=== PATIENT | female | born 1945 | race Caucasian/White ===

== ENCOUNTER 2022-11-02 15:52 | Emergency (ER) | payer OTHER ==
--- OUTSIDE RECORDS SUMMARY | 2022-11-02 16:22 | XMS REPORT | Continuity of Care Document ---
:1945 Author Organization [facility] t Address [address] [facility] [address] [place] [address] Care Team Providers Name Role Phone [phone] Primary Care Physician Unavailable SYSTEM, PROVIDER NOT IN Attending Clinician Unavailable Gilson Medina V Attending Clinician Unavailable HATTIE MCINTYRE I Attending Clinician Unavailable JAG MENDOZA Attending Clinician Unavailable BRAULIO HILLS Attending Clinician Unavailable KIERAN BRANNON Attending Clinician Unavailable JACK BARILLAS Attending Clinician Unavailable PEYTON DUNCAN Attending Clinician Unavailable SADIE BECKHAM Attending Clinician Unavailable Gilson Medina V Admitting Clinician Unavailable Payers Payer Name Policy Type Policy Number Effective Date Expiration Date S gianna [facility] MEDICARE [id number] 2020 ADVANTAGE 00:00:00 [employer] CHOICE [id number] 2017 MEDICARE PPO 00:00:00 Problems This patient has no known problems. Allergies, Adverse Reactions, Alerts This patient has no known allergies or adverse reactions. Medications This patient has no known medications. Vital Signs Vital Name Observation Time Observation Value Comments Source WEIGHT 2020-08-04 14:31:14 86.4 kg WEIGHT 2020-03-31 13:29:06 86.6 kg Procedures This patient has no known procedures. Encounters Start End Encounter Admission Attending Care Care Encounter Source Date/Time Date/Time Type Type Clinicians Facility Department ID 2019-11-09 Outpatient LIZET, KERRIE SY [id number] 13:57:36 PROVIDER Maynor o n 2022-04-26 2022-04-26 Outpatient KAYLIN Corcoran [id number] [facility] 12:00:00 12:00:00 Gilson [facility] 2022-03-13 2022-03-13 Outpatient EL ROSS, MDA MDA [id number] 15:14:15 15:14:15 HATTIE zamora 2022-02-15 2022-02-15 Outpatient EL MENDOZA, JAG MDA MDA [id number] 08:25:00 23:59:00 Maynor zamora 2022-02-15 2022-02-15 Outpatient EL AMARIA, MDA MDA [id number] MD 12:18:13 13:50:38 BRAULIO zamora 2022-02-15 2022-02-15 Outpatient EL MENDOZA, JAG MDA MDA [id number] 08:15:00 08:24:00 Maynor zamora 2022-02-15 2022-02-15 Outpatient EL MENDOZA, JAG MDA MDA [id number] 08:00:00 08:14:00 Maynor zamora 2021-08-17 2021-08-17 Outpatient EL AMARIA, MDA MDA [id number] MD 14:52:28 14:52:28 BRAULIO zamora 2021-08-03 2021-08-03 Outpatient EL AMARIA, MDA MDA [id number] 09:14:51 23:59:00 BRAULIO zamora 2021-08-03 2021-08-03 Outpatient EL MDA MDA [id number] 09:14:35 23:59:00 Maynor zamora 2021-07-27 2021-07-27 Outpatient EL CIUREA, KIERAN MDA MDA [id number] 11:44:56 12:43:42 Maynor zamora 2021-07-27 2021-07-27 Outpatient EL ROSS, MDA MDA [id number] 11:45:23 11:45:23 HATTIE zamora 2021-02-02 2021-02-02 Outpatient EL HENNEGAN, MDA MDA [id number] 10:19:52 23:59:00 JACK zamora 2021-02-02 2021-02-02 Outpatient EL AMARIA, MDA MDA [id number] 14:39:39 14:39:39 BRAULIO zamora 2021-02-02 2021-02-02 Outpatient EL ERAN, MDA MDA [id number] 10:15:00 10:18:00 JACK zamora 2020-11-24 2020-11-24 Outpatient EL MIGUELINA, MDA MDA [id number] MD 11:46:03 11:46:03 HATTIE zamora 2020-08-04 2020-08-04 Outpatient EL KELLY, JAG MDA MDA [id number] 10:30:00 23:59:00 Maynor zamora 2020-08-04 2020-08-04 Outpatient EL AMARIA, MDA MDA [id number] 14:08:28 19:18:53 BRAULIO zamora 2020-08-04 2020-08-04 Outpatient EL KELLY, JAG MDA MDA [id number] 10:55:47 10:55:47 Maynor zamora 2020-07-09 2020-07-09 Outpatient EL AMARIA, MDA MDA [id number] 15:23:20 16:28:47 BRAULIO zamora 2020-06-18 2020-06-18 Outpatient EL PERLA, MDA MDA [id number] MD 17:07:07 17:28:01 PEYTON zamora 2020-05-26 2020-05-26 Outpatient EL MIGUELINA, MDA MDA [id number] MD 12:05:17 12:53:51 HATTIE zamora 2020-03-31 2020-04-01 Outpatient EL AMARIA, MDA MDA [id number] MD 13:10:08 08:35:54 BRAULIO zamora 2020-04-01 2020-04-01 Outpatient EL BECKHAM, MDA MDA [id number] MD 00:00:00 00:00:00 SADIE zamora 2020-03-31 2020-03-31 Outpatient EL AMARIA, MDA MDA [id number] MD 09:49:14 23:59:00 BRAULIO zamora 2020-03-31 2020-03-31 Outpatient EL AMARIA, MDA MDA [id number] MD 08:05:00 09:48:00 BRAULIO zamora 2020-03-31 2020-03-31 Outpatient EL AMARIA, MDA MDA [id number] MD 07:45:00 08:04:00 BRAULIO zamora 2019-11-26 2019-11-26 Outpatient EL AMARIA, MDA MDA [id number] 07:45:00 23:59:00 BRAULIO zamora 2019-11-26 2019-11-26 Outpatient EL ROSS, MDA MDA [id number] 11:28:33 16:04:24 HATTIE zamora 2019-11-26 2019-11-26 Outpatient EL AMARIA, MDA MDA [id number] 11:28:17 14:15:52 BRAULIO zamora 2019-11-26 2019-11-26 Outpatient EL AMARIA, MDA MDA [id number] 08:30:59 08:30:59 BRAULIO zamora 2019-11-18 2019-11-18 Outpatient EL AMARIA, MDA MDA [id number] 00:00:00 00:00:00 BRAULIO zamora 2019-11-18 2019-11-18 Outpatient EL AMARIA, MDA MDA [id number] 00:00:00 00:00:00 BRAULIO zamora Results This patient has no known results.
[2022-11-02 17:56] LABS: Absolute Lymphocytes (CBC) 1.7 K/uL (0.7-4.9); Hematocrit 45.9 % (36.0-45.0); Lymphocytes % 15.2 % (15.3-44.8); MCV 96.2 fL (80-100); MPV 7.9 fL (7.6-11.3); RBC Red Blood Cell Count 4.78 M/uL (3.86-4.86)
[2022-11-02 18:20] LABS: Albumin 3.7 g/dL (3.4-5.0); Bilirubin Total 0.7 mg/dL (0.2-1.0); Protein, Total 9.2 g/dL (6.4-8.2)
[2022-11-02 18:26] LABS: Potassium 4.1 mEq/L (3.5-5.1)
--- NOTE | 2022-11-02 19:24 | RAD REPORT ---
EXAM DESCRIPTION: CT - Chest For Pe Angio - 11/02/2022 7:13 pm CLINICAL HISTORY: Chest pain. SOB COMPARISON: Chest Angio dated 03/20/2017 TECHNIQUE: CT angiogram of the pulmonary arteries was performed with MIP. All CT scans are performed using dose optimization technique as appropriate and may include automated exposure control or mA/KV adjustment according to patient size. FINDINGS: No evidence of pulmonary thromboembolism. No acute aortic finding demonstrated. There is a vague 1 cm ground-glass nodularity superior segment right lower lobe (image 111/140). Cont inued monitoring of this would be recommended with follow-up CT 6 months. No focal infiltrate seen. No significant pericardial or pleural fluid. No concerning bony finding. IMPRESSION: No evidence of pulmonary thromboembolism. Vague ground-glass nodularity superior segment right lower lobe. This is nonspecific. Followup survei llance CT chest in 6 months.
--- NOTE | 2022-11-02 19:35 | ER ---
Nurse's Notes [facility] Name: Myranda Song Age: 77 yrs Sex: Female : 1945 Arrival Date: 11/02/2022 Time: 15:[address] Private MD: Diagnosis: Solitary pulmonary nodule Presentation: 11/02 16:32 Chief complaint: Patient states: that she was sent here by her PCP to have a CT scan to [facility] r/o PE or pneumonia. Pt states that she had an x-ray and labs done yesterday. Pt states that her O2 level at her pcp was 90%. O2 sat in triage 98%, respirations even and unlabored, speaking in complete sentences. Pt has no complaints at this time. Coronavirus screen: Vaccine status: Patient reports receiving the 2nd dose of the covid vaccine. Ebola Screen: Patient denies travel to an Ebola-affected area in the 21 days before illness onset. No symptoms or risks identified at this time. Initial Sepsis Screen: Does the patient meet any 2 criteria? No. Patient's initial sepsis screen is negative. Does the patient have a suspected source of infection? No. Patient's initial sepsis screen is negative. Risk Assessment: Do you want to hurt yourself or someone else? Patient reports no desire to harm self or others. Onset of symptoms was November 02, 2022. 16:32 Method Of Arrival: Ambulatory 10 16:32 Acuity: NEIL 3 cm10 Triage Assessment: 16:38 General: Appears in no apparent distress. comfortable, Behavior is calm, cooperative. cm10 Pain: Denies pain. Neuro: No deficits noted. Level of Consciousness is awake, alert, Oriented to person, place, time, situation. Respiratory: No deficits noted. Airway is patent Respiratory effort is even, unlabored, Respiratory pattern is regular, symmetrical. Historical: - Allergies: 16:36 No Known Allergies; cm10 - PMHx: 16:36 Diabetes mellitus; Hypertensive disorder; high cholesterol; cancer- malignant melanoma; cm10 - Immunization history:: Adult Immunizations. - Social history:: Smoking status: Patient denies any tobacco usage or history of. Screenin:48 [facility] ED Fall Risk Assessment (Adult) History of falling in the last 3 months, kc6 including since admission No falls in past 3 months (0 pts) Confusion or Disorientation No (0 pts) Intoxicated or Sedated No (0 pts) Impaired Gait No (0 pts) Mobility Assist Device Used No (0 pt) Altered Elimination No (0 pt) Score/Fall Risk Level 0 - 2 = Low Risk Oriented to surroundings, Maintained a safe environment, Educated pt \T\ family on fall prevention, incl call for assistance when getting out of bed, Assessed \T\ reinforced patient's understanding of fall precautions, Hourly rounding (assess needs \T\ fall precautionary measures) done. Abuse screen: Denies threats or abuse. Denies injuries from another. Nutritional screening: No deficits noted. Tuberculosis screening: No symptoms or risk factors identified. Assessment: 17:51 General: Appears in no apparent distress. comfortable, Behavior is calm, cooperative, kc6 appropriate for age. Pain: Denies pain. Neuro: Diamond Agitation-Sedation Scale (RASS): 0 - Alert and Calm Level of Consciousness is awake, alert, obeys commands, Oriented to person, place, time, situation, Appropriate for age. Cardiovascular: Capillary refill < 3 seconds. Respiratory: Airway is patent Trachea midline Respiratory effort is even, unlabored, Respiratory pattern is regular, symmetrical. GI: No signs and/or symptoms were reported involving the gastrointestinal system. : No signs and/or symptoms were reported regarding the genitourinary system. EENT: No signs and/or symptoms were reported regarding the EENT system. Derm: No signs and/or symptoms reported regarding the dermatologic system. Skin is intact, Skin is pink, warm \T\ dry. Musculoskeletal: No signs and/or symptoms reported regarding the musculoskeletal system. Circulation, motion, and sensation intact. Capillary refill < 3 seconds, Range of motion: intact in all extremities. 18:54 Reassessment: Patient appears in no apparent distress at this time. No changes from kc6 previously documented assessment. Patient and/or family updated on plan of care and expected duration. Pain level reassessed. Patient is alert, oriented x 3, equal unlabored respirations, skin warm/dry/pink. 19:00 Reassessment: Patient appears in no apparent distress at this time. Patient and/or jb4 family updated on plan of care and expected duration. Pain level reassessed. Patient is alert, oriented x 3, equal unlabored respirations, skin warm/dry/pink. 20:05 Reassessment: Patient appears in no apparent distress at this time. Patient and/or jb4 family updated on plan of care and expected duration. Pain level reassessed. Patient is alert, oriented x 3, equal unlabored respirations, skin warm/dry/pink. Vital Signs: 16:32 BP 138 / 79; Pulse 90; Resp 18; Temp 98.2(TE); Pulse Ox 98% on R/A; Weight 78.47 kg; cm10 Height 5 ft. 5 in. ; Pain 0/10; 17:49 BP 151 / 77; Pulse 82; Resp 18 S; Pulse Ox 93% on R/A; kc6 18:55 BP 137 / 78; Pulse 81; Resp 17 S; Pulse Ox 98% on R/A; kc6 19:45 BP 149 / 89; Pulse 79; Resp 18; Pulse Ox 92% on R/A; jb4 16:32 Body Mass Index 28.79 (78.47 kg, 165.1 cm) cm10 16:32 Pain Scale: Adult cm10 ED Course: 15:54 Patient arrived in ED. am2 16:36 Triage completed. cm10 16:38 Finn Ward PA is PHCP. jmm 16:39 Rogers Riddle MD is Attending Physician. jmm 16:39 Arm band placed on Patient placed in waiting room. cm10 17:32 Bernie Radford RN is Primary Nurse. kc6 17:48 Patient has correct armband on for positive identification. Placed in gown. Bed in low kc6 position. Call light in reach. Side rails up X 1. 17:48 Inserted saline lock: 20 gauge in left forearm, using aseptic technique. ,using aseptic kc6 technique. placed by CRISTHIAN Duarte Blood collected. 19:15 CT Chest For PE Angio In Process Unspecified. EDMS 20:05 No provider procedures requiring assistance completed. IV discontinued, intact, jb4 bleeding controlled, No redness/swelling at site. Pressure dressing applied. Administered Medications: No medications were administered Outcome: 19:34 Discharge ordered by . jm 20:05 Discharged to home ambulatory, with family. jb4 20:05 Condition: stable 20:05 Discharge instructions given to patient, Instructed on discharge instructions, follow up and referral plans. medication usage, Demonstrated understanding of instructions, follow-up care, medications, Prescriptions given X 1. 20:06 Patient left the ED. jb4 Signatures: Dispatcher [employer] EDMS Finn Ward PA PA jmm Bryson, James RN RN jb4 Jannet Le am2 Bernie Radford RN RN kc6 Felicia Marsh RN RN cm10 Corrections: (The following items were deleted from the chart) 16:38 16:32 BP 138 / 79; Pulse 90bpm; Resp 98bpm; Pulse Ox 98% RA; Temp 98.2F Temporal; 78.47 cm10 kg; Height 5 ft. 5 in.; BMI: 28.7; Pain 0/10, Adult; cm10
--- NOTE | 2022-11-02 19:35 | EDPHYS ---
Physician Documentation [facility] Name: Myranda Song Age: 77 yrs Sex: Female : 1945 Arrival Date: 11/02/2022 Time: 15:[address] Private MD: ED Physician Rogers Riddle HPI: 11/02 16:44 This 77 yrs old Female presents to ER via Ambulatory with complaints of Abnormal Lab jmm Results. 16:44 The patient has shortness of breath at rest. Onset: The symptoms/episode began/occurred jmm gradually. The patient's shortness of breath is aggravated by nothing, is alleviated by nothing. Patient states she has felt fatigue and general weakness. Went to visit Dr. Medina. Labs drawn. Advised to go to ED due to abnormal imaging. . Historical: - Allergies: 16:36 No Known Allergies; cm10 - PMHx: 16:36 Diabetes mellitus; Hypertensive disorder; high cholesterol; cancer- malignant melanoma; cm10 - Immunization history:: Adult Immunizations. - Social history:: Smoking status: Patient denies any tobacco usage or history of. ROS: 16:44 Constitutional: Negative for fever, chills, and weight loss, Cardiovascular: Negative jmm for chest pain, palpitations, and edema. 16:44 Respiratory: Positive for shortness of breath. 16:44 Neuro: Positive for weakness. 16:44 All other systems are negative. Exam: 16:44 Constitutional: This is a well developed, well nourished patient who is awake, alert, jmm and in no acute distress. Head/Face: atraumatic. Eyes: EOMI, no conjunctival erythema appreciated ENT: Moist Mucus Membranes Neck: Trachea midline, Supple Chest/axilla: Normal chest wall appearance and motion. Cardiovascular: Regular rate and rhythm. No edema appreciated Respiratory: Normal respirations, no respiratory distress appreciated Abdomen/GI: Non distended Back: Normal ROM Skin: General appearance color normal MS/ Extremity: Moves all extremities, no obvious deformities appreciated, no edema noted to the lower extremities Neuro: Awake and alert Psych: Behavior is normal, Mood is normal, Patient is cooperative and pleasant Vital Signs: 16:32 BP 138 / 79; Pulse 90; Resp 18; Temp 98.2(TE); Pulse Ox 98% on R/A; Weight 78.47 kg; cm10 Height 5 ft. 5 in. ; Pain 0/10; 17:49 BP 151 / 77; Pulse 82; Resp 18 S; Pulse Ox 93% on R/A; kc6 18:55 BP 137 / 78; Pulse 81; Resp 17 S; Pulse Ox 98% on R/A; kc6 19:45 BP 149 / 89; Pulse 79; Resp 18; Pulse Ox 92% on R/A; jb4 16:32 Body Mass Index 28.79 (78.47 kg, 165.1 cm) cm10 16:32 Pain Scale: Adult cm10 MDM: 16:44 Patient medically screened. [facility] 19:30 Differential diagnosis: pneumonia, Pulmonary Embolism. [facility] 20:51 Data reviewed: vital signs, nurses notes, lab test result(s), radiologic studies, CT [facility] scan. Consideration of Admission/Observation Escalation of care including admission/observation considered. Counseling: I had a detailed discussion with the patient and/or guardian regarding: the historical points, exam findings, and any diagnostic results supporting the discharge/admit diagnosis, lab results, radiology results, the need for outpatient follow up, to return to the emergency department if symptoms worsen or persist or if there are any questions or concerns that arise at home. 11/02 16:45 Order name: CBC with Diff; Complete Time: 18:09 [facility] 11/02 16:45 Order name: CMP; Complete Time: 18:29 [facility] 11/02 16:45 Order name: Lipase; Complete Time: 18:29 [facility] 11/02 16:45 Order name: Lactate w/ 2H reflex if indic.; Complete Time: 18:33 [facility] 11/02 16:45 Order name: Blood Culture Adult (2) [facility] 11/02 16:45 Order name: CT Chest For PE Angio; Complete Time: 19:26 [facility] 11/02 16:45 Order name: IV Saline Lock; Complete Time: 17:48 [facility] 11/02 16:45 Order name: Labs collected and sent; Complete Time: 17:48 [facility] Administered Medications: No medications were administered Disposition: 21:17 Co-signature as Attending Physician, Rogers Riddle MD I reviewed the patient's care rt provided by the Advanced Practice Provider and agree with the diagnosis and treatment plan. Disposition Summary: 11/02/22 19:34 Discharge Ordered Location: Home [facility] Condition: Stable [facility] Diagnosis - Solitary pulmonary nodule [facility] Followup: [facility] - With: Private Physician - When: 2 - 3 days - Reason: Recheck today's complaints, Continuance of care, Re-evaluation by your physician Discharge Instructions: - Discharge Summary Sheet sharmin - Pulmonary Nodule sharmin Forms: - Medication Reconciliation Form sharmin - Thank You Letter chelsea - Antibiotic Education chelsea - Prescription Opioid Use sharmin Prescriptions: - cefdinir 300 mg Oral capsule - take 1 capsule by ORAL route 2 times per day for 10 days; 20 capsule; Refills: chelsea 0, Product Selection Permitted Signatures: Dispatcher [employer] EDMS Finn Ward PA PA jmm Turkington, Ryan, MD MD rt Felicia Marsh RN RN cm10 Corrections: (The following items were deleted from the chart) 20:51 16:44 The patient's shortness of breath is aggravated by nothing, is alleviated by jmm nothing, chelsea
[2022-11-02 20:28] VITALS: TEMP 98.2
[2022-11-02 20:34] VITALS: BP 149/89; O2SAT 92
== END 2022-11-02 20:06 | disposition home or self-care (01) ==
LOC: ER 15:52
DX: R91.1 Solitary pulmonary nodule (principal); R53.1 Weakness; R53.83 Other fatigue; I10 Essential (primary) hypertension; E11.9 Type 2 diabetes mellitus without complications; Z85.820 Personal history of malignant melanoma of skin
CPT/HCPCS: 87040; 85025; 36415; 83605; 83690; 80053; 71275; 99284; Q9967

== ENCOUNTER 2024-05-16 15:51 | Emergency (ER) | payer OTHER ==
[2024-05-16] MEDS ORDERED: MORPHINE 2 MG/ML SYR ONE (16:10)
--- NOTE | 2024-05-16 16:51 | RAD REPORT ---
EXAMINATION: XR LEFT SHOULDER CLINICAL INDICATION: Female, 78 years old. Swelling;Pain TECHNIQUE: Multiple views of the left shoulder were obtained. COMPARISON: No prior exam. FINDINGS: Mildly impacted surgical neck fracture proximal left humerus. Prominent greater tuberosity component noted. No dislocation seen.
--- NOTE | 2024-05-16 17:40 | EDPHYS ---
Physician Documentation [facility] Name: Myranda Song Age: 78 yrs Sex: Female : 1945 Arrival Date: 05/16/2024 Time: 15:51 Bed 12 Private MD: ED Physician Manan Brenner HPI: 05/16 16:48 This 78 yrs old Female presents to ER via EMS with complaints of Arm Injury. dr5 16:48 The patient or guardian complains of injury, swelling, tenderness. The complaints dr5 affect the anterior aspect of left shoulder. Context: The problem was sustained at home, resulted from a fall, the patient slipped. Onset: The symptoms/episode began/occurred acutely. Patient is a 78-year-old female with history of diabetes, hyperlipidemia, hypertension, remission from malignant melanoma coming in for a mechanical fall while in her kitchen. Patient reports she was walking and slipped on hard tile landing on her left shoulder. Patient was brought in by EMS and patient took 2 extra strength Tylenol prior to arrival.. Historical: - Allergies: 16:00 No Known Allergies; iw - PMHx: 15:59 cancer- malignant melanoma; diabetes mellitus; High Cholesterol; Hypertensive disorder; iw - Immunization history:: Adult Immunizations. - Infectious Disease History:: Denies. - Social history:: Smoking status: unknown. ROS: 16:48 Constitutional: as per hpi dr5 Exam: 16:48 Constitutional: This is a well developed, well nourished patient who is awake, alert, dr5 and in no acute distress. Head/Face: Normocephalic, atraumatic. Eyes: Pupils equal round and reactive to light, extra-ocular motions intact. Lids and lashes normal. Conjunctiva and sclera are non-icteric and not injected. Cornea within normal limits. Periorbital areas with no swelling, redness, or edema. ENT: Nares patent. No nasal discharge, no septal abnormalities noted. Tympanic membranes are normal and external auditory canals are clear. Oropharynx with no redness, swelling, or masses, exudates, or evidence of obstruction, uvula midline. Mucous membranes moist. Neck: Trachea midline, no thyromegaly or masses palpated, and no cervical lymphadenopathy. Supple, full range of motion without nuchal rigidity, or vertebral point tenderness. No Meningismus. Chest/axilla: Normal chest wall appearance and motion. Nontender with no deformity. No lesions are appreciated. Cardiovascular: Regular rate and rhythm with a normal S1 and S2. Normal PMI, no JVD. No pulse deficits. Respiratory: Lungs have equal breath sounds bilaterally, clear to auscultation. No rales, rhonchi or wheezes noted. No increased work of breathing, no retractions or nasal flaring. Back: No spinal tenderness. No costovertebral tenderness. Full range of motion. Skin: Warm, dry with normal turgor. Normal color with no rashes, no lesions, and no evidence of cellulitis. 16:48 Neuro: Awake and alert, GCS 15, oriented to person, place, time, and situation. Cranial nerves II-XII grossly intact. Motor strength 5/5 in all extremities. Sensory grossly intact. Cerebellar exam normal. Normal gait. 16:48 Musculoskeletal/extremity: Extremities: noted in the anterior aspect of left shoulder: pain, swelling, tenderness, ROM: limited active range of motion, in the left arm, Circulation is intact in all extremities. Sensation intact. Vital Signs: 16:00 BP 158 / 78; Pulse 74; Resp 18; Temp 98.1; Pulse Ox 97% on R/A; Pain 3/10; iw 16:00 Pain Scale: Adult iw Procedures: 17:55 Splinting: Splint applied to left bicep using Shoulder immobilizer. applied by tech. destiny post reduction film - Examined by me, post splint application: neurovascular intact, 2+ distal pulses palpable, brisk capillary refill noted, Patient tolerated well. MDM: 15:57 Medical Screening Exam initiated dr5 17:55 Differential diagnosis: dislocation, open fracture, closed fracture, contusion, dr5 abrasion. Data reviewed: vital signs, nurses notes. I considered the following discharge prescriptions or medication management in the emergency department Medications were administered in the Emergency Department. See MAR. Care significantly affected by the following chronic conditions: diabetes, hyperlipidemia, hypertension. Care significantly affected by the following Social Determinants of Health: Poor access to healthcare and/or lack of insurance, Poor access to transportation, Problems related to employment. Counseling: I had a detailed discussion with the patient and/or guardian regarding the historical points, exam findings, and any diagnostic results supporting the discharge/admit diagnosis, the presence of at least one elevated blood pressure reading (>120/80) during this emergency department visit, the need for outpatient follow up, for definitive care, a family practitioner, a orthopedic surgeon, to return to the emergency department if symptoms worsen or persist or if there are any questions or concerns that arise at home. 17:55 Medication response: morphine markedly relieved the patient's pain. Symptoms have dr5 improved. Response to treatment: the patient's symptoms have markedly improved after treatment. ED course: Patient placed in shoulder immobilizer. Sent Tylenol with codeine to take as needed for breakthrough pain. Recommended alternating Tylenol Motrin as needed for pain. Discussed with family and will take her to orthopedic in [place] for follow-up. All questions answered. X-ray report printed and put in discharge paperwork. 05/16 15:54 Order name: Shoulder Left (2 View) XRAY; Complete Time: 17:11 dr5 05/16 17:29 Order name: Shoulder Immobilizer; Complete Time: 17:52 dr5 Administered Medications: 16:23 Drug: morphine IM 2 mg IM once Route: IM; Site: left deltoid; iw 16:50 Follow up: Response: No adverse reaction; Pain is decreased iw Disposition Summary: 05/16/24 17:39 Discharge Ordered Notes: Location: Home dr5 Condition: Stable dr5 Diagnosis - Fracture of upper end of humerus dr5 Followup: dr5 - With: Emergency Department - When: As needed - Reason: Worsening of condition Followup: dr5 - With: Private Physician - When: 1 - 2 days - Reason: Recheck today's complaints, Continuance of care, Re-evaluation by your physician Discharge Instructions: - Discharge Summary Sheet dr5 - Humerus Fracture Treated With Immobilization dr5 Forms: - Medication Reconciliation Form dr5 - Prescription Opioid Use dr5 - Patient Portal Instructions dr5 - Leadership Thank You Letter dr5 Prescriptions: - acetaminophen-codeine 300-15 mg Oral tablet - take 1 tablet ORAL route every 6 hours As needed as needed for pain; 20 tablet; dr5 Refills: 0, Product Selection Permitted Addendum: 05/18/2024 07:39 I was immediately available for consultation during this patient's visit. I did not e c2 personally see the patient or discuss the patient with the [place]. . Signatures: Dispatcher [employer] Yolanda Soares RN RN iw Manan Brenner MD MD ec2 Hasmukh Salas, CONDUIT BENDER-C CONDUIT BENDER-Cdr5
--- NOTE | 2024-05-16 17:40 | ER ---
Nurse's Notes [facility] Name: Myranda Song Age: 78 yrs Sex: Female : 1945 Arrival Date: 05/16/2024 Time: 15:51 Bed 12 Private MD: Diagnosis: Fracture of upper end of humerus Presentation: 05/16 15:58 Chief complaint: Patient states: tripped and fell , landed on left arm, hit head, no iw LOC. Coronavirus screen: At this time, the client does not indicate any symptoms associated with coronavirus-19. Ebola Screen: No symptoms or risks identified at this time. Initial Sepsis Screen: Does the patient meet any 2 criteria? No. Patient's initial sepsis screen is negative. Does the patient have a suspected source of infection? No. Patient's initial sepsis screen is negative. Risk Assessment: Do you want to hurt yourself or someone else? Patient reports no desire to harm self or others. Onset of symptoms was May 16, 2024. 15:58 Method Of Arrival: EMS: [facility] iw 15:58 Acuity: NEIL 4 iw Historical: - Allergies: 16:00 No Known Allergies; iw - PMHx: 15:59 cancer- malignant melanoma; diabetes mellitus; High Cholesterol; Hypertensive disorder; iw - Immunization history:: Adult Immunizations. - Infectious Disease History:: Denies. - Social history:: Smoking status: unknown. Screenin:27 [facility] ED Fall Risk Assessment (Adult) History of falling in the last 3 months, iw including since admission Yes- single mechanical fall (1 pt) Confusion or Disorientation No (0 pts) Intoxicated or Sedated No (0 pts) Impaired Gait No (0 pts) Mobility Assist Device Used No (0 pt) Altered Elimination No (0 pt) Score/Fall Risk Level 0 - 2 = Low Risk Oriented to surroundings. Abuse screen: Denies threats or abuse. Nutritional screening: No deficits noted. Tuberculosis screening: No symptoms or risk factors identified. Assessment: 16:26 General: Appears in no apparent distress. Behavior is calm, cooperative. Pain: iw Complains of pain in anterior aspect of left shoulder and posterior aspect of left shoulder Pain currently is 6 out of 10 on a pain scale. Neuro: Level of Consciousness is awake, alert, obeys commands, Oriented to person, place, time, situation, Moves all extremities. Full function. Cardiovascular: Patient's skin is warm and dry. Respiratory: Respiratory effort is even, unlabored, Respiratory pattern is regular. Derm: Skin is intact, is healthy with good turgor. Musculoskeletal: Range of motion: intact in all extremities. Vital Signs: 16:00 BP 158 / 78; Pulse 74; Resp 18; Temp 98.1; Pulse Ox 97% on R/A; Pain 3/10; iw 16:00 Pain Scale: Adult iw ED Course: 15:53 Patient arrived in ED. eb 15:53 Hasmukh Salas FNP-C is [facility]. dr5 15:53 Manan Brenner MD is Attending Physician. dr5 15:57 Yolanda Careron, RN is Primary Nurse. iw 15:59 Triage completed. iw 15:59 Arm band placed on. iw 16:27 Patient has correct armband on for positive identification. Provided Education on: . iw 16:28 Patient did not have IV access during this emergency room visit. iw 16:44 Shoulder Left (2 View) XRAY In Process Unspecified. EDMS 18:18 No provider procedures requiring assistance completed. iw Administered Medications: 16:23 Drug: morphine IM 2 mg IM once Route: IM; Site: left deltoid; iw 16:50 Follow up: Response: No adverse reaction; Pain is decreased iw Medication: 16:26 VIS not applicable for this client. iw Outcome: 17:39 Discharge ordered by MD. dr5 18:18 Discharged to home ambulatory, with family, iw 18:18 Condition: good 18:18 Discharge instructions given to patient, Instructed on discharge instructions, follow up and referral plans. medication usage, Demonstrated understanding of instructions, follow-up care, medications, Prescriptions given X 1, 18:19 Patient left the ED. iw Signatures: Dispatcher [employer] EDMS Yolanda Carreon, CRISTHIAN MORROW Leeanna Nath Hasmukh Salas FNP-C [employer]ER-Cdr5
[2024-05-16 18:51] VITALS: BP 158/78; TEMP 98.1; O2SAT 97
== END 2024-05-16 18:19 | disposition home or self-care (01) ==
LOC: ER 15:51
DX: S42.212A Unspecified displaced fracture of surgical neck of left humerus, initial encounter for closed fracture (principal); W01.0XXA Fall on same level from slipping, tripping and stumbling without subsequent striking against object, initial encounter; Y92.010 Kitchen of single-family (private) house as the place of occurrence of the external cause
CPT/HCPCS: 73030; 96372; 99284; J2270

== ENCOUNTER 2024-08-30 20:33 | Emergency (ER) | payer OTHER ==
[2024-08-30 21:40] LABS: Absolute Eosinophils 0.1 K/uL (0-0.5); Absolute Lymphocytes (CBC) 1.2 K/uL (0.7-4.9); Absolute Monocytes 0.9 K/uL (0.1-1.3); Absolute Neutrophil 8.3 K/uL (1.8-8.0); Basophils % 0.3 % (0-1.3); Eosinophils % 1.3 % (0-4.4); Hematocrit 45.7 % (36.0-45.0); Hemoglobin 15.7 g/dL (12.0-15.0); Lymphocytes % 10.9 % (15.3-44.8); MCH 32.5 pg (27.0-35.0); MCHC 34.3 g/dL (32.0-36.0); MCV 94.9 fL (80-100); MPV 8.3 fL (7.6-11.3); Monocytes % 8.7 % (3.3-12.3); Neutrophils % 78.8 % (41.7-73.7); Nucleated Red Blood Cells % 0.1 % (0-0); Platelets 304 thou/uL (152-406); RBC Red Blood Cell Count 4.82 M/uL (3.86-4.86); Red Cell Distribution Width 13.7 % (12.1-15.2)
[2024-08-30] MEDS ORDERED: FAMOTIDINE 20 MG/2 ML VIAL IV ONE (21:40)
[2024-08-30] MEDS ORDERED: ONDANSETRON 4 MG/2 ML VIAL ONE (21:40)
--- NOTE | 2024-08-30 21:44 | RAD REPORT ---
Procedure: Chest Single View HISTORY: Chest pain and nausea COMPARISON: 2022 FINDINGS: The lungs appear clear of acute infiltrate. No significant pleural effusion noted. The heart is normal size. IMPRESSION: No acute abnormality is displayed.
[2024-08-30 21:45] LABS: PT Prothrombin Time 11.2 SECONDS (10-13.0); PTT, Activated Partial Thromb 30.7 SECONDS (27.2-37.4); Protime INR 0.98
[2024-08-30 22:03] LABS: Albumin 3.6 g/dL (3.4-5.0); Albumin/Globulin Ratio 0.7 (1.1-1.8); Anion Gap 6.7 mEq/L (5.0-15.0); Bilirubin Direct 0.7 mg/dL (0-0.2); Bilirubin Indirect, Calculated 0.4 mg/dL (0.2-0.8); Bilirubin Total 1.1 mg/dL (0.2-1.0); Globulin 5.2 g/dL (2.3-3.5); Magnesium 2.5 mg/dL (1.6-2.4); Potassium 3.7 mEq/L (3.5-5.1); Protein, Total 8.8 g/dL (6.4-8.2)
--- NOTE | 2024-08-31 01:27 | RAD REPORT ---
Clinical Indication: Bed Name: 14; epigastric pain;Chest pain Comparison: November 02, 2022 TECHNIQUE: Sequential trans-axial images were obtained through the chest, abdomen and pelvis after in travenous administration of iodinated contrast. Oral contrast was not administered. Coronal and sagittal reconstructions were obtained and provided as separate series. IV CONTRAST: IV contrast dose was not provided All CT scans at this location are performed using dose optimization techniques as appropriate to perf orm the study. Radiation dose reduction technique was utilized including one or more of the following: Automated exp osure control, adjustment of the mA and/or kV according to patient size and use of iterative reconstruction technique. CT Radiation Dose DLP 1021.8 mGy-cm FINDINGS: CT CHEST WITH CONTRAST: LUNG PARENCHYMA AND PLEURA: No pulmonary opacities are noted. . There are no lung nodules. Centrilobu lar emphysematous changes are noted throughout the lungs. There are no pleural effusions. There is no pneumothorax. AIRWAY: The central airway is patent. MEDIASTINUM: No significant mediastinal lymphadenopathy. Surgical clips are noted in the right axil la. HEART: The cardiac chambers are unremarkable. There is trace pericardial effusion. VASCULAR STRUCTURES: The pulmonary arteries and great vessels are unremarkable. The thoracic aorta is within normal limits.. The superior vena cava is unremarkable. OSSEOUS STRUCTURES: There are no acute osseous abnormalities seen. CT ABDOMEN AND PELVIS WITH CONTRAST: LIVER: Unremarkable. GALLBLADDER: Thickening of the gallbladder wall may be due to underdistention. No calcified gallstone s are noted. No surrounding inflammatory changes are seen. INTRAHEPATIC BILE DUCT AND EXTRAHEPATIC BILE DUCT: Unremarkable. PANCREAS: Unremarkable. SPLEEN: Unremarkable. ADRENALS: Unremarkable. KIDNEYS AND URETERS: The renal contours are normal. There is no hydronephrosis. Multiple bilateral 1-3 mm renal stones are noted. No stones are noted within the ureters or urinary bladder. No perinephric fat stranding is noted. STOMACH: Evaluation of the stomach and bowel is limited due to lack of oral contrast. No gross abno rmalities of the stomach are noted. Tiny hiatal hernia is noted. BOWEL: The small bowel loops in the abdomen and pelvis appear unremarkable. The colonic loops in the abdomen and pelvis appear unremarkable. Moderate diverticular disease is noted within the sigmoid colon. No surrounding inflammatory changes are seen to suggest acute diverticulitis. APPENDIX: Not well seen on the exam. PERITONEUM AND RETROPERITONEUM: No ascites or free air. There is no aortic aneurysm or dissection. PELVIS: The uterus and adnexa are unremarkable. BLADDER: Unremarkable LYMPH NODES: Unremarkable. OSSEOUS STRUCTURES: No acute abnormality seen. S-shaped scoliosis of the thoracolumbar spine is noted with compensatory degenerative changes. SOFT TISSUES: Unremarkable. IMPRESSION: 1. Mild centrilobular emphysematous changes. 2. No acute abnormality of the thorax is noted. 3. Moderate diverticulosis of the sigmoid colon. No CT evidence of acute diverticulitis. 4. Multiple bilateral renal calyceal stones. No hydronephrosis is noted.. Electronically signed by: Gerardo Perez MD 08/31/2024 12:41 AM CDT RP Due to temporary technical issues with the PACS/MINDBODY reporting system, reports are being sharon d by the in-house radiologist without review as a courtesy to ensure prompt reporting the interpreting radiologist is fully responsible for the content of the report. Transcribed Date/Time: 08/31/2024 1:27 AM
--- NOTE | 2024-08-31 01:54 | EDPHYS ---
Physician Documentation [facility] Name: Myranda Song Age: 79 yrs Sex: Female : 1945 Arrival Date: 08/30/2024 Time: 20:33 Bed 14 Private MD: ED Physician Lars Garcia HPI: 08/30 21:20 This 79 yrs old Female presents to ER via Ambulatory with complaints of Doesn't Feel cp Right, Nausea, burping. 21:20 The patient or guardian reports chest pain that is located primarily in the lower mid cp chest. 21:20 Onset: today. The pain does not radiate. Associated signs and symptoms: Pertinent cp positives: nausea, epigastric discomfort. The chest pain is described as a heaviness, discomfort. Duration: The patient or guardian reports multiple episodes, that wax and wane. Severity of pain: in the emergency department the pain has improved moderately. Historical: - Allergies: 21:05 No Known Allergies; br2 - PMHx: 21:05 Hypertensive disorder; High Cholesterol; diabetes mellitus; cancer- malignant melanoma; br2 - Immunization history:: Adult Immunizations up to date. - Infectious Disease History:: Denies. - Social history:: Smoking status: Patient denies any tobacco usage or history of. Patient uses alcohol, occasionally. Patient/guardian denies using street drugs. ROS: 21:25 Constitutional: Negative for body aches, chills, fever, poor PO intake, cp 21:25 Eyes: Negative for injury, pain, redness, and discharge, cp 21:25 ENT: Negative for drainage from ear(s), ear pain, sore throat, difficulty swallowing, difficulty handling secretions, 21:25 Cardiovascular: Positive for chest pain, 21:25 Respiratory: Negative for cough, shortness of breath, wheezing, 21:25 Abdomen/GI: Positive for abdominal pain, nausea, of the epigastric area, Negative for vomiting, diarrhea, constipation, 21:25 : Negative for urinary symptoms, hematuria, 21:25 Neuro: Negative for altered mental status, dizziness, headache, syncope, near syncope, weakness, 21:25 All other systems are negative, Exam: 21:30 Constitutional: The patient appears in no acute distress, alert, awake, cp non-diaphoretic, non-toxic, well developed, well nourished, uncomfortable, 21:30 Head/Face: Normocephalic, atraumatic. cp 21:30 Eyes: Periorbital structures: appear normal, Conjunctiva: normal, no exudate, no injection, Sclera: no appreciated abnormality, Lids and lashes: appear normal, bilaterally, 21:30 ENT: External ear(s): are unremarkable, Nose: is normal, Mouth: Lips: moist, Oral mucosa: moist, Posterior pharynx: Airway: no evidence of obstruction, patent, 21:30 Neck: ROM/movement: is normal, is supple, without pain, no range of motions limitations, 21:30 Chest/axilla: Inspection: normal, 21:30 Cardiovascular: Rate: normal, Rhythm: regular, Edema: is not appreciated, JVD: is not appreciated, 21:30 Respiratory: the patient does not display signs of respiratory distress, Respirations: normal, no use of accessory muscles, no retractions, labored breathing, is not present, Breath sounds: are clear throughout, no decreased breath sounds, no stridor, no wheezing, 21:30 Abdomen/GI: Inspection: abdomen appears normal, Bowel sounds: active, all quadrants, Palpation: soft, in all quadrants, mild abdominal tenderness, in the epigastric area, rebound tenderness, is not appreciated, involuntary guarding, is not appreciated, 21:30 Back: CVA tenderness, is absent, 21:30 Neuro: Orientation: to person, place \T\ time. Mentation: is normal, 21:36 ECG was reviewed by the Attending Physician. cp Vital Signs: 21:01 BP 168 / 82; Pulse 87; Resp 18 S; Temp 97.6; Pulse Ox 97% on R/A; Weight 83.91 kg; br2 Height 5 ft. 5 in. ; Pain 0/10; 21:57 BP 134 / 79; Pulse 80; Resp 18; Pulse Ox 98% ; cp4 23:31 BP 141 / 76; Pulse 81; Resp 18; Pulse Ox 100% ; cp4 04/21 00:44 BP 127 / 67; Pulse 72; Resp 18; Pulse Ox 98% ; cp4 01:55 BP 144 / 74; Pulse 73; Resp 18; Pulse Ox 98% ; cp4 03:13 BP 126 / 69; Pulse 70; Resp 18 S; Pulse Ox 97% on R/A; br2 04:26 BP 133 / 68; Pulse 69; Resp 16; Pulse Ox 98% on R/A; br2 08/30 21:01 Body Mass Index 30.79 (83.91 kg, 165.1 cm) br2 08/30 21:01 Pain Scale: Adult br2 MDM: 08/30 21:01 Medical Screening Exam initiated cp 22:00 Differential diagnosis: abnormal EKG, acute myocardial infarction, cholecystitis, cp Cholelithiasis esophagitis, gastritis, pancreatitis, pericarditis, pleurisy, pneumonia, pneumothorax, stable angina, thoracic aortic disection, unstable angina. 08/31 01:55 Data reviewed: vital signs, nurses notes, lab test result(s), EKG, radiologic studies, cp CT scan, I have discussed the patient's presentation/case with the attending Emergency Department Physician; and as a result, I will transfer patient for GI consultation. 02:51 ED course: consult with hospitalist, DR Nascimento, will accept patient after discussion cp to [facility]. 08/30 21:12 Order name: Basic Metabolic Panel; Complete Time: 22:38 cp 08/30 22:38 Interpretation: Normal except: GLUC 164; BUN 19; CRE 1.07; GFR 53. cp 08/30 21:12 Order name: CBC with Diff; Complete Time: 22:38 cp 08/30 22:38 Interpretation: Normal except: HGB 15.7; HCT 45.7; ALISTAIR% 78.8; LYM% 10.9; NEUT A 8.3. cp 08/30 21:12 Order name: LFT's; Complete Time: 22:38 cp 08/30 22:39 Interpretation: Normal except: AST 222; ALT 183; ALK 232; BILIT 1.1; BILID 0.7; TP 8.8; cp GLOB 5.2; A/G 0.7. 08/30 21:12 Order name: Magnesium; Complete Time: 22:38 cp 08/30 21:12 Order name: NT PRO-BNP; Complete Time: 22:38 cp 08/30 21:12 Order name: PT-INR; Complete Time: 22:38 cp 08/30 21:12 Order name: Troponin HS; Complete Time: 22:38 cp 08/30 21:12 Order name: Ptt, Activated; Complete Time: 22:38 cp 08/30 21:12 Order name: Lipase; Complete Time: 22:38 cp 08/31 02:15 Order name: Lactate w/ 2H reflex if indic. cp 08/31 02:15 Order name: Blood Culture Adult (2) cp 08/30 21:12 Order name: XRAY Chest (1 view); Complete Time: 22:38 cp 08/30 22:40 Order name: CT Chest, Abdomen, Pelvis - W/Contrast cp 08/30 21:12 Order name: EKG; Complete Time: 21:13 cp 08/30 21:12 Order name: Cardiac monitoring; Complete Time: 21:36 cp 08/30 21:12 Order name: EKG - Nurse/Tech; Complete Time: 21:36 cp 08/30 21:12 Order name: IV Saline Lock; Complete Time: 21:36 cp 08/30 21:12 Order name: Labs collected and sent; Complete Time: 21:36 cp 08/30 21:12 Order name: O2 Per Protocol; Complete Time: 21:36 cp 08/30 21:12 Order name: O2 Sat Monitoring; Complete Time: 21:36 cp EC/20 21:36 Rate is 80 beats/min. Rhythm is regular. NV interval is normal. QRS interval is normal. cp QT interval is normal. T waves are Inverted in lead aVR. Interpreted by me. Reviewed by me. Administered Medications: 21:43 Drug: Famotidine IVP 20 mg IVP once; dilute with 10 mL 0.9% NaCl; give over 2 minutes cp4 Route: IVP; Site: left antecubital; 08/31 01:21 Follow up: Response: No adverse reaction cp4 08/30 21:43 Drug: Ondansetron IVP 4 mg IVP once; over 2 minutes Route: IVP; Site: left antecubital; cp4 08/31 01:21 Follow up: Response: No adverse reaction cp4 02:38 Drug: Piperacillin-Tazobactam IVPB 3.375 grams IVPB once over 60 mins; (mix in NS 100 cp4 mL) Route: IVPB; Infused Over: 60 mins; Site: left antecubital; 03:40 Follow up: IV Status: Completed infusion; IV Intake: 100ml br2 03:08 Drug: NS 0.9% IV 500 ml 500 ml IV at 1 bolus once; to be given as a bolus over 30 br2 minutes Volume: 500 ml; Route: IV; Rate: 1 bolus; Site: left antecubital; 03:41 Follow up: Response: No adverse reaction; IV Status: Completed infusion; IV Intake: br2 500ml 03:40 Drug: NS 0.9% IV 500 ml IV at 100 ml/hr once Route: IV; Rate: 100 ml/hr; Site: left br2 antecubital; 04:53 Follow up: Response: No adverse reaction; IV Status: Completed infusion; IV Intake: br2 130ml Disposition: 04:30 Co-signature as Attending Physician, Lars Garcia MD I agree with the assessment sp4 and plan of care. I reviewed the patient's care provided by the Advanced Practice Provider and agree with the diagnosis and treatment plan. Disposition Summary: 08/31/24 01:53 Transfer Ordered Notes: Reason: Higher level of care cp Condition: Stable cp Problem: new cp Symptoms: have improved cp Transfer Location: [facility](08/31/24 02:52) cp Accepting Physician: DR Nascimento(08/31/24 04:54) br2 Diagnosis - Nausea cp - Chest pain, unspecified cp - Epigastric pain cp - Abnormal findings on diagnostic imaging of liver and biliary tract cp - Abnormal results of liver function studies cp Forms: - Medication Reconciliation Form cp - SBAR form cp Signatures: Dispatcher [employer] EDMS Gabriele Cardenas PA PA cp Potepalov, Sergey, MD MD sp4 Laure Collins cp4 Vania Corrales RN RN br2 Corrections: (The following items were deleted from the chart) 02:16 02:16 LACTATE+C.LAB.BRZ ordered. EDMS EDMS 02:16 02:16 BLOOD CULTURE*+BA.LAB.BRZ ordered. EDMS EDMS 02:52 01:53 Doctor cp cp 02:52 01:53 Other [facility] cp cp 04:54 02:52 DR Nascimento cp br2
--- NOTE | 2024-08-31 01:54 | ER ---
Nurse's Notes [facility] Name: Myranda Song Age: 79 yrs Sex: Female : 1945 Arrival Date: 08/30/2024 Time: 20:33 Bed 14 Private MD: Diagnosis: Nausea;Chest pain, unspecified;Epigastric pain;Abnormal findings on diagnostic imaging of liver and biliary tract;Abnormal results of liver function studies Presentation: 08/30 21:01 Chief complaint: Patient states: CHEST TIGHTNESS, BURPING, NAUSEA...THAT RADIATES TO br2 ABDOMINAL, FATIGUE. PT STATES THESE SYMPTOMS HAVE SUBSIDED SINCE THEN. DENIES PAIN AT THIS TIME. Coronavirus screen: Client denies travel out of the [place] in the last 14 days. Ebola Screen: Patient denies exposure to infectious person. Initial Sepsis Screen: Does the patient meet any 2 criteria? No. Patient's initial sepsis screen is negative. Does the patient have a suspected source of infection? No. Patient's initial sepsis screen is negative. Risk Assessment: Do you want to hurt yourself or someone else? Patient reports no desire to harm self or others. Onset of symptoms was August 30, 2024 at 18:00. 21:01 Method Of Arrival: Ambulatory br2 21:01 Method Of Arrival: Ambulatory br2 21:01 Acuity: NEIL 3 br2 Triage Assessment: 21:05 General: Appears in no apparent distress. comfortable, Behavior is calm, cooperative. br2 Pain: Denies pain. GI: Reports indigestion, nausea. Historical: - Allergies: 21:05 No Known Allergies; br2 - PMHx: 21:05 Hypertensive disorder; High Cholesterol; diabetes mellitus; cancer- malignant melanoma; br2 - Immunization history:: Adult Immunizations up to date. - Infectious Disease History:: Denies. - Social history:: Smoking status: Patient denies any tobacco usage or history of. Patient uses alcohol, occasionally. Patient/guardian denies using street drugs. Screenin:[facility] ED Fall Risk Assessment (Adult) History of falling in the last 3 months, cp4 including since admission No falls in past 3 months (0 pts) Confusion or Disorientation No (0 pts) Intoxicated or Sedated No (0 pts) Impaired Gait No (0 pts) Mobility Assist Device Used No (0 pt) Altered Elimination No (0 pt) Score/Fall Risk Level 0 - 2 = Low Risk Oriented to surroundings, Maintained a safe environment, Assessed \T\ reinforced patient's understanding of fall precautions, Hourly rounding (assess needs \T\ fall precautionary measures) done. Abuse screen: Denies threats or abuse. Denies injuries from another. Nutritional screening: No deficits noted. Tuberculosis screening: No symptoms or risk factors identified. Assessment: 21:56 General: Appears in no apparent distress. uncomfortable, Behavior is calm, cooperative, cp4 appropriate for age. Pain: Denies pain. Neuro: Level of Consciousness is awake, alert, obeys commands, Oriented to person, place, time, situation. Cardiovascular: Rhythm is sinus rhythm. Cardiovascular: Patient's skin is warm and dry. Respiratory: Airway is patent Respiratory effort is even, unlabored. GI: Abdomen is round non-distended, Bowel sounds present X 4 quads. Abd is soft and non tender X 4 quads. Reports gaseousness. : No signs and/or symptoms were reported regarding the genitourinary system. EENT: No signs and/or symptoms were reported regarding the EENT system. Derm: No signs and/or symptoms reported regarding the dermatologic system. Musculoskeletal: No signs and/or symptoms reported regarding the musculoskeletal system. 08/31 03:13 Reassessment: Patient and/or family updated on plan of care and expected duration. Pain br2 level reassessed. Patient is alert, oriented x 3, equal unlabored respirations, skin warm/dry/pink. Patient states feeling better. Patient states symptoms have improved. Vital Signs: 08/30 21:01 BP 168 / 82; Pulse 87; Resp 18 S; Temp 97.6; Pulse Ox 97% on R/A; Weight 83.91 kg; br2 Height 5 ft. 5 in. ; Pain 0/10; 21:57 BP 134 / 79; Pulse 80; Resp 18; Pulse Ox 98% ; cp4 23:31 BP 141 / 76; Pulse 81; Resp 18; Pulse Ox 100% ; cp4 08/31 00:44 BP 127 / 67; Pulse 72; Resp 18; Pulse Ox 98% ; cp4 01:55 BP 144 / 74; Pulse 73; Resp 18; Pulse Ox 98% ; cp4 03:13 BP 126 / 69; Pulse 70; Resp 18 S; Pulse Ox 97% on R/A; br2 04:26 BP 133 / 68; Pulse 69; Resp 16; Pulse Ox 98% on R/A; br2 08/30 21:01 Body Mass Index 30.79 (83.91 kg, 165.1 cm) br2 08/30 21:01 Pain Scale: Adult br2 ED Course: 08/30 20:35 Patient arrived in ED. im 20:51 Gabriele Carednas PA is PHCP. cp 20:51 Lars Garcia MD is Attending Physician. cp 21:05 Triage completed. br2 21:26 XRAY Chest (1 view) In Process Unspecified. EDMS 21:36 Initial lab(s) drawn, by me, sent to lab. EKG done, by ED staff, reviewed by Gabriele Cardenas cp4 PA. Inserted saline lock: 22 gauge in left antecubital area, using aseptic technique. Blood collected. Flushed with 10 mL NS. 21:39 Laure Collins is Primary Nurse. cp4 21:56 No provider procedures requiring assistance completed. cp4 21:56 Bed in low position. Call light in reach. Side rails up X2. cp4 23:31 CT Chest, Abdomen, Pelvis - W/Contrast In Process Unspecified. EDMS 08/31 04:26 Report given to [id number]. br2 04:53 Arm band placed on right wrist. br2 04:54 Patient transferred, IV remains in place. br2 04:59 initiated transfer with [facility] spoke with Omar Espinoza \T\[id number]/ patient was accepted to [facility] to Dr. Nascimento \T\ 0250 admin approval omar rapp \T\ 0308 to Room 418. Administered Medications: 08/30 21:43 Drug: Famotidine IVP 20 mg IVP once; dilute with 10 mL 0.9% NaCl; give over 2 minutes cp4 Route: IVP; Site: left antecubital; 08/31 01:21 Follow up: Response: No adverse reaction cp4 08/30 21:43 Drug: Ondansetron IVP 4 mg IVP once; over 2 minutes Route: IVP; Site: left antecubital; cp4 08/31 01:21 Follow up: Response: No adverse reaction cp4 02:38 Drug: Piperacillin-Tazobactam IVPB 3.375 grams IVPB once over 60 mins; (mix in NS 100 cp4 mL) Route: IVPB; Infused Over: 60 mins; Site: left antecubital; 03:40 Follow up: IV Status: Completed infusion; IV Intake: 100ml br2 03:08 Drug: NS 0.9% IV 500 ml 500 ml IV at 1 bolus once; to be given as a bolus over 30 br2 minutes Volume: 500 ml; Route: IV; Rate: 1 bolus; Site: left antecubital; 03:41 Follow up: Response: No adverse reaction; IV Status: Completed infusion; IV Intake: br2 500ml 03:40 Drug: NS 0.9% IV 500 ml IV at 100 ml/hr once Route: IV; Rate: 100 ml/hr; Site: left br2 antecubital; 04:53 Follow up: Response: No adverse reaction; IV Status: Completed infusion; IV Intake: br2 130ml Medication: 08/30 21:56 VIS not applicable for this client. cp4 Intake: 08/31 03:40 IV: 100ml; Total: 100ml. br2 03:41 IV: 500ml; Total: 600ml. br2 04:53 IV: 130ml; Total: 730ml. br2 Outcome: 01:53 ER care complete, transfer ordered by MD. 04:54 Transferred by ground EMS to [facility], Transfer form completed. br2 X-rays sent w/ patient. 04:54 Condition: improved 04:54 Instructed on the need for transfer, Demonstrated understanding of instructions, follow-up care, 04:54 Patient left the ED. br2 Signatures: Dispatcher [employer] EDMS Gabriele Cardenas PA PA cp Mendoza, Itzel im Potter, Christina cp4 Sloedad Naidu Belinda, RN RN br2 Corrections: (The following items were deleted from the chart) 08/30 21:08 21:01 Chief complaint: Patient states: CHEST TIGHTNESS, BURPING, NAUSEA...THAT RADIATES br2 TO ABDOMINAL, FATIGUE. br2
[2024-08-31] MEDS ORDERED: NA CHLORIDE 0.9% 100 ML ONE (02:21)
[2024-08-31] MEDS ORDERED: PIPERACIL/TAZO 3.375 GM VIAL IV ONE (02:22)
[2024-08-31] MEDS ORDERED: NA CHLORIDE 0.9% 1,000 ML ONE (02:59)
[2024-08-31 05:23] VITALS: TEMP 97.6
[2024-08-31 05:39] VITALS: BP 133/68; O2SAT 98
--- NOTE | 2024-09-02 12:46 | EKG ---
Test Date: 2024-08-30 Test Time: 21:33:28 [employer]: LOKI MEASUREMENT RESULTS: Intervals: Rate: 80 GA: 148 QRSD: 78 QT: 382 QTc: 440 [place]: P: 73 GA: 148 QRS: 74 T: 60 INTERPRETIVE STATEMENTS: Sinus rhythm with frequent premature ventricular complexes Otherwise normal ECG Compared to ECG 03/20/2017 21:21:59 Ventricular premature complex(es) now present Electronically Signed On 09-02-24 12:40:22 CDT by Hardik Narvaez
== END 2024-08-31 04:54 | disposition short-term general hospital (02) ==
LOC: ER 20:33
DX: R07.9 Chest pain, unspecified (principal); R11.0 Nausea; R10.13 Epigastric pain; R94.5 Abnormal results of liver function studies; R93.2 Abnormal findings on diagnostic imaging of liver and biliary tract
CPT/HCPCS: 96365; 96361; 93005; 87040 ×2; 85025; 80048; 36415; 83735; 85610; 80076; 83605; 85730; 84484; 83690; 83880; 71260; 74177; 71045; 96375; 99285; Q9967; J2543; J2405; J7030